=== PATIENT | female | born 1945 | race Caucasian/White ===

== ENCOUNTER → 2024-03-05 | Outpatient (CLI) | payer MEDICARE, BC, SELFPAY ==
[2024-03-05 11:19] LABS: Basophils % (Auto) 1 % (0-2.5); Eosinophils # (Auto) 0.4 Thou/mm3 (0.0-0.5); Eosinophils % (Auto) 7 % (0-10); Hematocrit 39.9 % (36.0-46.0); Immature Granulocytes % (Auto) 0 % (0-0); Immature Granulocytes Auto 0.01 Thou/mm3 (0.00-0.00); Lymphocytes # (Auto) 1.4 Thou/mm3 (1.0-4.8); Lymphocytes % (Auto) 26 % (10-50); Mean Corpuscular HGB Conc 32.6 g/dl (31.0-37.0); Mean Corpuscular Hemoglobin 29.9 pg (25.0-35.0); Mean Corpuscular Volume 92 fL (80-100); Monocytes # (Auto) 0.3 Thou/mm3 (0.0-0.8); Monocytes % (Auto) 6 % (0-12); Neutrophils # (Auto) 3.3 Thou/mm3 (1.8-7.7); Neutrophils % (Auto) 60 % (37-80); Nucleated Red Blood Cell % 0 /100 WBC (0); Platelet Count 235 Thou/mm3 (140-440); RDW Standard Deviation 44.1 fL (36.4-46.3); Red Blood Count 4.35 Miln/mm3 (4.00-5.20); White Blood Count 5.4 Thou/mm3 (3.6-11.0)
[2024-03-05 11:33] LABS: Alanine Aminotransferase 24 U/L (10-49); Albumin, Serum 4.4 gm/dL (3.4-4.8); Albumin/Globulin Ratio 1.8 (1.2-2.2); Alkaline Phosphatase 104 U/L (46-116); Anion Gap 8 (7-16); Aspartate Amino Transferase 24 U/L (0-34); BUN/Creatinine Ratio 25 Ratio (12-20); Bilirubin,Total 0.7 mg/dL (0.3-1.2); Blood Urea Nitrogen 15 mg/dL (9-23); Calcium 9.7 mg/dL (8.3-10.6); Calcium (Corrected) 9.7 mg/dL (8.5-10.1); Chloride 104 mMol/L (98-107); Cholesterol 182 mg/dL (132-200); Creatinine (Component) 0.6 mg/dL (0.6-1.3); Globulin 2.4 gm/dL (2.3-3.5); Glucose 94 mg/dL (74-106); HDL Cholesterol 93 mg/dL (40-60); LDL Cholesterol,Calculated 78 mg/dL (0-130); Osmolality,Calculated 278 (275-295); Sodium 139 mMol/L (136-145); T4 (Thyroxine) 6.8 mcg/dL (4.5-10.9); Thyroid Stimulating Hormone 1.55 uIU/mL (0.55-4.78); Total Protein 6.8 gm/dL (5.7-8.2); Triglycerides 57 mg/dL (30-150); eGFR > 60 See Note
== END | disposition home or self-care (01) ==
LOC: COPL 10:29
PROVIDERS: PCP Family Medicine; Referring Provider Family Medicine; Visit Provider Family Medicine
DX: J45.41 Moderate persistent asthma with (acute) exacerbation (principal); I10 Essential (primary) hypertension; K21.9 Gastro-esophageal reflux disease without esophagitis; R79.9 Abnormal finding of blood chemistry, unspecified
CPT/HCPCS: 36415; 80053; 80061; 84436; 84443; 85025

== ENCOUNTER → 2024-04-02 | Outpatient (CLI) | payer MEDICARE, BC, SELFPAY ==
--- NOTE | 2024-04-02 12:30 | XR_ITS ---
Examination: Breast ultrasound, unilateral, right complete Date and time of exam: April 02, 2024 1203 hours INDICATIONS: Mammogram April 01, 2023 7 mm circumscribed nodule upper outer right breast, ultrasound-guided right breast July 11, 2023 2:00 nodule 11 mm 6:00 nodule 8 mm 10:00 nodule 19 mm Technique: Real-time frank scale ultrasonographic imaging performed right breast including all 4 quadrants as well as nipple retroareolar and axillary region. Findings: 2:00 oval mass hyperechoic circumscribed 14 x 12 mm 3:00 oval mass circumscribed hyperechoic 15 x 10 mm 10:00 oval mass circumscribed hyperechoic 16 x 19 mm IMPRESSION: BI-RADS Category 3: Probably benign findings Recommend 1 additional 6 month right breast sonogram follow-up to document stability of probably benign lipoma as described above
--- NOTE | 2024-04-02 13:00 | XR_ITS ---
Examination: Screening digital mammography, bilateral Computer aided detection 3-D breast Tomosynthesis, bilateral Date and time of exam: April 02, 2024 1156 hours Compared to mammograms dated to October 15, 2018 Indication: Screening Technique: Nonmagnified MLO, CC views of the breasts to been obtained, reconstructed from 3-D Tomosynthesis images. R2 computer aided detection program utilized for evaluation of suspicious masses and/or abnormal calcifications. 3-D Tomosynthesis images obtained. Findings: Scattered areas of fibroglandular density Benign calcifications. No interval suspicious masses Impression: BI-RADS category II: Benign Findings. Recommend 1 year follow-up mammogram. Please see the right breast sonogram report today indicating need for 6 month follow-up
== END | disposition home or self-care (01) ==
LOC: CDIM 11:49
PROVIDERS: Referring Provider Surgery; Visit Provider Surgery
DX: Z12.31 Encounter for screening mammogram for malignant neoplasm of breast (principal); R92.1 Mammographic calcification found on diagnostic imaging of breast
CPT/HCPCS: 76641; 77063; 77067

== ENCOUNTER 2024-11-01 07:25 | Day surgery (SDC) | payer MEDICARE, BC, SELFPAY ==
--- NOTE | 2024-10-30 06:26 | EKG_ITS ---
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
[2024-10-30 09:32] VITALS: BMI 32.9
[2024-10-30 10:25] LABS: Basophils # (Auto) 0.1 Thou/mm3 (0.0-0.2); Basophils % (Auto) 1 % (0-2.5); Eosinophils # (Auto) 0.5 Thou/mm3 (0.0-0.5); Eosinophils % (Auto) 7 % (0-10); Hematocrit 40.9 % (36.0-46.0); Hemoglobin 13.7 g/dL (12.0-16.0); Immature Granulocytes Auto 0.02 Thou/mm3 (0.00-0.00); Lymphocytes # (Auto) 1.8 Thou/mm3 (1.0-4.8); Lymphocytes % (Auto) 24 % (10-50); Mean Corpuscular HGB Conc 33.5 g/dl (31.0-37.0); Mean Corpuscular Hemoglobin 30.2 pg (25.0-35.0); Mean Corpuscular Volume 90 fL (80-100); Monocytes # (Auto) 0.5 Thou/mm3 (0.0-0.8); Monocytes % (Auto) 6 % (0-12); Neutrophils # (Auto) 4.5 Thou/mm3 (1.8-7.7); Neutrophils % (Auto) 61 % (37-80); Nucleated Red Blood Cell # 0.00 Thou/mm3 (0.00-0.00); Nucleated Red Blood Cell % 0 /100 WBC (0); Platelet Count 218 Thou/mm3 (140-440); RDW Standard Deviation 42.0 fL (36.4-46.3); Red Blood Count 4.54 Miln/mm3 (4.00-5.20); White Blood Count 7.3 Thou/mm3 (3.6-11.0)
[2024-10-30 10:39] LABS: Alanine Aminotransferase 20 U/L (10-49); Albumin, Serum 4.5 gm/dL (3.4-4.8); Albumin/Globulin Ratio 1.8 (1.2-2.2); Alkaline Phosphatase 80 U/L (46-116); Anion Gap 7 (7-16); Aspartate Amino Transferase 24 U/L (0-34); BUN/Creatinine Ratio 23 Ratio (12-20); Bilirubin,Total 0.6 mg/dL (0.3-1.2); Blood Urea Nitrogen 16 mg/dL (9-23); Calcium 10.1 mg/dL (8.3-10.6); Calcium (Corrected) 10.1 mg/dL (8.5-10.1); Carbon Dioxide 29.0 mMol/L (20.0-31.0); Chloride 106 mMol/L (98-107); Creatinine (Component) 0.7 mg/dL (0.6-1.3); Estimated Creatinine Clearance 62.0 mL/min (>60); Globulin 2.5 gm/dL (2.3-3.5); Glucose 99 mg/dL (74-106); Osmolality,Calculated 284 (275-295); Potassium 4.2 mMol/L (3.4-5.1); Sodium 142 mMol/L (136-145); Total Protein 7.0 gm/dL (5.7-8.2); eGFR > 60 See Note
[2024-11-01] VITALS (10 sets, daily range): BP systolic 125–157; BP diastolic 67–83; PULSE 88–102; RESP 12–21; TEMP 36.7–37.2; O2SAT 95–100; BMI 32.8
[2024-11-01] MEDS: RINGERS LACTATED 1000 ML 1,000 ML 20 ML IV (07:05)
--- NOTE | 2024-11-01 09:57 | PD.SUROPNT ---
Date of Procedure 11/01/24 Pre Op Diagnosis Bilateral inguinal hernia Post Op Diagnosis Bilateral direct inguinal hernia Procedure Repair of bilateral inguinal hernias with mesh Findings Patient was found to have bilateral direct inguinal hernias Procedure Description Patient brought into the operating room in supine position. After administration of general endotracheal anesthesia, patient's bilateral groins were shaved, prepped and draped in standard surgical manner. The procedure started on the patient's left side. The left inguinal crease was anesthetized with half percent Marcaine. An approximately 5 cm incision was made and dissection was carried to subcutaneous tissue. The Lenny's fascia was divided and the external oblique aponeurosis was opened towards the external ring. The hernia sac was from the posterior aspect of the external oblique aponeurosis at the level of pubic tubercle. Patient was noted to have direct left inguinal hernia defect. The defect was closed with interrupted [id number] sutures using 0 Vicryl. The floor of inguinal canal was then reconstructed with ultra Pro proceed mesh. The mesh was secured with running 2-0 Prolene suture. The mesh secured medially to the pubic tubercle, superiorly into the conjoin tendon, inferiorly and to the shelving edge of inguinal ligament, the mesh was tacked under the external oblique aponeurosis laterally. The area was copiously and thoroughly washed and irrigated, all the fluids were suctioned and the suction fluid returned clear. Hemostasis was adequate and satisfactory. External oblique aponeurosis was closed with running 2-0 Vicryl suture, and Lenny's fascia was closed with interrupted suture using 3-0 Vicryl. The incision was closed with 4-0 Monocryl in subcutaneous fashion. I then turned my attention to patient's right side. She was noted to have direct right inguinal hernia defect and the procedure was performed in similar fashion. Instruments, needles and sponge counts were reported to be correct ?2. Patient tolerated the procedure well. He was extubated, breathing spontaneously and without difficulty and was transferred to postanesthesia care in stable condition. Anesthesia GETA and local Pathology / specimen None Estimated Blood Loss 20 Condition Stable Disposition PACU Surgeon Alisha Martin MD Surgical Staff Operation Date: 11/01/24 08:45 Case Staff HEPATOLOGIST: Syd Calix RNrotary lithographic press operator: Makenzie Oreilly
[2024-11-01] MEDS: fentaNYL CIT INJ 50 mCg/ML AMP 2ML IVP ×2 (10:33→10:45)
--- NOTE | 2024-11-01 10:35 | SUR.PHASEI ---
1006: Pt received in [facility] via gurney. Report from Primitivo ARAIZA and Raúl MAHER. Pt groggy. Easily aroused. Resp even, unlabored. VS stable. Dressing to lower abdomen dry, clean, intact. No c/o pain. 1033: Pt awake with c/o pain to abdomen. Rates pain level 8/10. Resp even, unlabored. VS stable. Dressing remains dry, clean, intact. Pain medication given.
--- NOTE | 2024-11-01 10:55 | SUR.PHASEII ---
1045: Pt contines to have c/o pain to lower abdomen. Rates pain level 7/10. Resp even, unlabored. VS stable. Pain medication given per order.
--- NOTE | 2024-11-01 14:07 | SUR.PHASEII ---
1105: Pt states pain level coming down and she is more comfortable. Resp even, unlabored. VS stable. Pt is sitting up tolerating po fluids with no difficulty swallowing and no n/v. 1134: Pt fully awake, oriented x3. Pt dressed and assisted to transport chair. Ambulation steady. Abdominal binder provided and placed. Pt and son stated understanding of discharge instructions. Pt discharged from [facility] in stable condition.
== END 2024-11-01 11:34 | disposition home or self-care (01) ==
PROVIDERS: Anesthesiology; PCP Family Medicine; Referring Provider Surgery; Visit Provider Surgery
PROC: (CPT 49505; principal; 2024-11-01 08:45)
DX: K40.20 Bilateral inguinal hernia, without obstruction or gangrene, not specified as recurrent (principal); I10 Essential (primary) hypertension; J44.89 Other specified chronic obstructive pulmonary disease; Z01.810 Encounter for preprocedural cardiovascular examination; Z98.84 Bariatric surgery status; Z79.899 Other long term (current) drug therapy
CPT/HCPCS: 49505; 36415; 80053; 85025; 93005; A4217; A4649; C1781; J0131; J0690; J1100; J2371; J2405; J2704; J3010; J3490; J7120

== ENCOUNTER 2025-01-09 06:39 | Day surgery (SDC) | payer MEDICARE, BC, SELFPAY ==
[2025-01-07 11:26] VITALS: BMI 32.1
--- NOTE | 2025-01-08 07:00 | EKG_ITS ---
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
[2025-01-08 09:53] LABS: Basophils # (Auto) 0.1 Thou/mm3 (0.0-0.2); Basophils % (Auto) 1 % (0-2.5); Eosinophils # (Auto) 0.5 Thou/mm3 (0.0-0.5); Eosinophils % (Auto) 8 % (0-10); Hematocrit 40.8 % (36.0-46.0); Hemoglobin 13.0 g/dL (12.0-16.0); Immature Granulocytes Auto 0.01 Thou/mm3 (0.00-0.00); Lymphocytes # (Auto) 1.5 Thou/mm3 (1.0-4.8); Lymphocytes % (Auto) 26 % (10-50); Mean Corpuscular HGB Conc 31.9 g/dl (31.0-37.0); Mean Corpuscular Hemoglobin 29.6 pg (25.0-35.0); Mean Corpuscular Volume 93 fL (80-100); Monocytes # (Auto) 0.4 Thou/mm3 (0.0-0.8); Monocytes % (Auto) 7 % (0-12); Neutrophils # (Auto) 3.5 Thou/mm3 (1.8-7.7); Neutrophils % (Auto) 59 % (37-80); Nucleated Red Blood Cell # 0.00 Thou/mm3 (0.00-0.00); Nucleated Red Blood Cell % 0 /100 WBC (0); Platelet Count 231 Thou/mm3 (140-440); RDW Standard Deviation 45.4 fL (36.4-46.3); Red Blood Count 4.39 Miln/mm3 (4.00-5.20); White Blood Count 6.0 Thou/mm3 (3.6-11.0)
[2025-01-08 10:02] LABS: Anion Gap 6 (7-16); BUN/Creatinine Ratio 19 Ratio (12-20); Blood Urea Nitrogen 13 mg/dL (9-23); Calcium 10.0 mg/dL (8.3-10.6); Carbon Dioxide 30.6 mMol/L (20.0-31.0); Chloride 105 mMol/L (98-107); Creatinine (Component) 0.7 mg/dL (0.6-1.3); Estimated Creatinine Clearance 60.2 mL/min (>60); Glucose 83 mg/dL (74-106); Osmolality,Calculated 282 (275-295); Potassium 3.9 mMol/L (3.4-5.1); Sodium 142 mMol/L (136-145); eGFR > 60 See Note
[2025-01-08 10:12] LABS: INR 0.9 (0.9-1.3); Partial Thromboplastin Time 26.2 Seconds (22.0-36.0); Prothrombin Time 10.1 Seconds (9.0-12.2)
[2025-01-09] VITALS (10 sets, daily range): BP systolic 102–145; BP diastolic 48–96; PULSE 65–88; RESP 14–18; TEMP 36.7–36.8; O2SAT 95–99
--- NOTE | 2025-01-09 08:58 | ESOP_ITS ---
RE: CRISTAL LYNCH : 1945 DATE OF OPERATION: 01/09/2025 PROCEDURES PERFORMED: 1. Diagnostic left heart cardiac catheterization, selective coronary angiogram, left ventricular angiogram, CPT 52776. 2. Conscious sedation of 30-minute duration. 3. Ultrasound guided access of right radial artery. DIAGNOSES: Angina pectoris and abnormal stress test. HISTORY AND INDICATIONS: The patient is an 79-year-old pleasant lady with a longstanding history of hypertension, allergies, and asthma who underwent bariatric surgery many years ago. She has been having episodes of recurrent substernal chest pain and shortness of breath relieved by nitroglycerin, classic angina pectoris. She did have an inconclusive stress test. Because of classic patient of angina pectoris with crushing chest pain and jaw pain, recommended coronary angiogram and cardiac catheterization to assess the patient. T DESCRIPTION OF PROCEDURE: The patient was brought to the cardiac catheterization laboratory. She was given 2 mg of Versed for sedation and 50 mcg of fentanyl was given. The right radial approach was taken. Right radial artery was cannulated with a micropuncture needle, and a 6-Portuguese Glidesheath was introduced. A radial cocktail was given consisting of nitroglycerin, verapamil, and heparin. Selective right and left coronary angiography, left heart catheterization, and left ventricular angiogram were performed with a 5-Portuguese TIG 4 diagnostic catheter. The patient tolerated the procedure well. No complications. A TR band was applied. Hemostasis was secured. Coronary angiogram showed the following findings: Right coronary artery is a large and dominant gives rise to the PDA and PL branches. All of them appeared perfectly normal. Left coronary system: The left main coronary artery is normal. The left anterior descending artery is normal. The left circumflex artery is normal and gives rise to a large obtuse marginal branch, which appears normal. Left ventricular pressure showed a systolic pressure of LV EDP is 10. Left ventricle angiogram showed normal left ventricular wall motion. Ejection fraction is 60%. Pullback pressures were measured, no gradient across the aortic valve. Aortic pressure 110/60. SUMMARY OF FINDINGS: Suggestive of: 1. Normal, nonobstructive epicardial coronary arteries. 2. Normal left ventricular systolic function with an ejection fraction of 60%. 3. Normal hemodynamics. RECOMMENDATIONS: The patient is reassured about the absence of significant obstructive coronary artery disease. Prognosis is excellent. Recommend to continue medical management. The patient may have either esophageal spasm or coronary spasm. We will manage her medically. Prognosis is excellent. DT: 08:24:12 TT: 08:56:00 Ref: [id number] - TID: [id number] MTDD
== END 2025-01-09 10:50 | disposition home or self-care (01) ==
PROVIDERS: PCP Family Medicine; Referring Provider Internal Medicine Cardiovascular Disease; Visit Provider Internal Medicine Cardiovascular Disease
PROC: (CPT 93458; principal; 2025-01-09 07:30)
DX: I25.110 Atherosclerotic heart disease of native coronary artery with unstable angina pectoris (principal); Z01.810 Encounter for preprocedural cardiovascular examination; I10 Essential (primary) hypertension; I34.0 Nonrheumatic mitral (valve) insufficiency; I35.1 Nonrheumatic aortic (valve) insufficiency; J45.20 Mild intermittent asthma, uncomplicated
CPT/HCPCS: 93458; 36415; 80048; 85025; 85610; 85730; 93005; 99152; A4649; C1769; C1887; C1894; J0168; J0461; J1643; J2250; J2312; J2371; J3010; J3490; Q9967; J2305

== ENCOUNTER → 2025-03-14 | Outpatient (CLI) | payer MEDICARE, BC, SELFPAY ==
[2025-03-14 12:29] LABS: Basophils # (Auto) 0.0 Thou/mm3 (0.0-0.2); Basophils % (Auto) 0 % (0-2.5); Eosinophils # (Auto) 0.2 Thou/mm3 (0.0-0.5); Eosinophils % (Auto) 2 % (0-10); Hematocrit 41.8 % (36.0-46.0); Hemoglobin 13.5 g/dL (12.0-16.0); Immature Granulocytes Auto 0.07 Thou/mm3 (0.00-0.00); Lymphocytes # (Auto) 1.1 Thou/mm3 (1.0-4.8); Lymphocytes % (Auto) 10 % (10-50); Mean Corpuscular HGB Conc 32.3 g/dl (31.0-37.0); Mean Corpuscular Hemoglobin 29.9 pg (25.0-35.0); Mean Corpuscular Volume 93 fL (80-100); Monocytes # (Auto) 0.3 Thou/mm3 (0.0-0.8); Monocytes % (Auto) 3 % (0-12); Neutrophils # (Auto) 8.6 Thou/mm3 (1.8-7.7); Neutrophils % (Auto) 83 % (37-80); Nucleated Red Blood Cell # 0.00 Thou/mm3 (0.00-0.00); Nucleated Red Blood Cell % 0 /100 WBC (0); Platelet Count 248 Thou/mm3 (140-440); RDW Standard Deviation 46.3 fL (36.4-46.3); Red Blood Count 4.52 Miln/mm3 (4.00-5.20); White Blood Count 10.4 Thou/mm3 (3.6-11.0)
[2025-03-14 12:35] LABS: Glucose Estimated Average 103 mg/dL (80-131); Hemoglobin A1C 5.2 % Hgb (4.8-6.0)
[2025-03-14 12:39] LABS: T4 (Thyroxine) 6.4 mcg/dL (4.5-10.9)
[2025-03-14 12:41] LABS: Alanine Aminotransferase 26 U/L (10-49); Albumin, Serum 4.8 gm/dL (3.4-4.8); Albumin/Globulin Ratio 2.0 (1.2-2.2); Alkaline Phosphatase 79 U/L (46-116); Anion Gap 10 (7-16); Aspartate Amino Transferase 24 U/L (0-34); BUN/Creatinine Ratio 21 Ratio (12-20); Bilirubin,Total 0.6 mg/dL (0.3-1.2); Blood Urea Nitrogen 15 mg/dL (9-23); Calcium 10.1 mg/dL (8.3-10.6); Calcium (Corrected) 10.1 mg/dL (8.5-10.1); Carbon Dioxide 30.8 mMol/L (20.0-31.0); Cardiac Risk Estimate 1.8 RATIO (3.7-5.6); Chloride 103 mMol/L (98-107); Cholesterol 219 mg/dL (132-200); Creatinine (Component) 0.7 mg/dL (0.6-1.3); Globulin 2.4 gm/dL (2.3-3.5); Glucose 115 mg/dL (74-106); HDL Cholesterol 120 mg/dL (40-60); LDL Cholesterol,Calculated 81 mg/dL (0-130); Osmolality,Calculated 288 (275-295); Potassium 4.0 mMol/L (3.4-5.1); Sodium 144 mMol/L (136-145); Thyroid Stimulating Hormone 1.21 uIU/mL (0.55-4.78); Total Protein 7.2 gm/dL (5.7-8.2); Triglycerides 88 mg/dL (30-150); eGFR > 60 See Note
== END | disposition home or self-care (01) ==
LOC: COPL 10:44
PROVIDERS: PCP Family Medicine; Referring Provider Family Medicine; Visit Provider Family Medicine
DX: H53.15 Visual distortions of shape and size (principal); I10 Essential (primary) hypertension; K21.9 Gastro-esophageal reflux disease without esophagitis
CPT/HCPCS: 36415; 80053; 80061; 83036; 84436; 84443; 85025

== ENCOUNTER → 2025-04-10 | Outpatient (CLI) | payer MEDICARE, BC, SELFPAY ==
--- NOTE | 2025-04-10 09:58 | XR_ITS ---
EXAMINATION: Thoracic spine 3 views TECHNIQUE: AP lateral, coned lateral upper dorsal spine 3 views Date and time: April 10, 2025, 1008 hours INDICATIONS: Upper back pain beginning 5 days ago. FINDINGS: Severe osteopenia Mild chronic wedging T11 T7 No acute fracture Moderate diffuse thoracic disc narrowing IMPRESSION: Moderate diffuse thoracic degenerative disc disease
== END | disposition home or self-care (01) ==
LOC: CDIM 09:48
PROVIDERS: PCP Family Medicine; Referring Provider Physician Assistant Medical; Visit Provider Physician Assistant Medical
DX: M51.34 Other intervertebral disc degeneration, thoracic region (principal)
CPT/HCPCS: 72070